=== PATIENT | female | born 1995 | race African-American/Black ===

== ENCOUNTER 2017-03-25 14:35 | Emergency (ER) | payer OTHER ==
[2017-03-25 14:49] VITALS: BP 149/72; PULSE 89; TEMP 98.2; BMI 29.2
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
[2017-03-25] MEDS ORDERED: KETOROLAC TROMETHAMINE 60 MG/2 ML VIAL IM ONE (16:08)
[2017-03-25] MEDS ORDERED: KETOROLAC TROMETHAMINE 60 MG/2 ML VIAL ONE (16:13)
== END 2017-03-25 17:23 | disposition home or self-care (01) ==
LOC: JERFT 14:35
PROC: 3E0233Z Introduction of Anti-inflammatory into Muscle, Percutaneous Approach (ICD-10-PCS; principal; 2017-03-25)
DX: M62.81 Muscle weakness (generalized) (principal); J45.909 Unspecified asthma, uncomplicated; F41.9 Anxiety disorder, unspecified; F32.9 Major depressive disorder, single episode, unspecified; V47.5XXA Car driver injured in collision with fixed or stationary object in traffic accident, initial encounter; Y93.89 Activity, other specified; Y92.415 Exit ramp or entrance ramp of street or highway as the place of occurrence of the external cause
CPT/HCPCS: 72050-TC; 84703; 99281-25

== ENCOUNTER 2017-08-17 03:48 | Emergency (ER) | payer OTHER ==
[2017-08-17] MEDS ORDERED: SODIUM CHLORIDE 1,000 ML IV STA ×2 (04:07→06:33)
[2017-08-17 04:10] VITALS: BMI 34.0
[2017-08-17] MEDS ORDERED: ONDANSETRON 4 MG/2 ML VIAL IVPUSH ONE (04:15)
--- NOTE | 2017-08-17 04:17 | PDOC ---
History of Present Illness - General Chief Complaint: Nausea/Vomiting Stated Complaint: FLU 19 WEEKS Time Seen by Provider: 08/17/17 04:00 History Source: Patient - History of Present Illness Initial Comments: 08/17/17 06:00 21-year-old female 19 weeks 2 para 1 complaining of throat pain , body aches, subjective fevers, nausea vomiting. Denies abdominal pain, vaginal bleeding, vaginal discharge. Patient was seen at [facility] ER and was diagnosed with the flu. Reports taking Tylenol at 10 PM. Past History - Past Medical History Allergies/Adverse Reactions: Allergies Allergy/AdvReac Type Severity Reaction Status Date / Time doxycycline Allergy Severe Hives Verified 08/17/17 04:04 sulfamethoxazole Allergy Severe Hives Verified 08/17/17 04:04 [From Bactrim] trimethoprim [From Bactrim] Allergy Severe Hives Verified 08/17/17 04:04 Home Medications: Ambulatory Orders Cyclobenzaprine HCl [Flexeril 10 mg] 10 mg PO BID PRN #20 tablet MDD 2 03/25/17 Naproxen [Naprosyn -] 500 mg PO BID #14 tablet 03/25/17 Ondansetron HCl [Zofran] 4 mg PO TID PRN #12 tablet 08/17/17 Asthma: Yes Psychiatric Problems: Yes (ANXIETY/DEPRESSION) - Immunization History Immunization Up to Date: Yes - Suicide/Smoking/Psychosocial Hx Smoking History: Current every day smoker Number of Cigarettes Smoked Daily: 3 Hx Alcohol Use: No Drug/Substance Use Hx: No Substance Use Type: None Review of Systems - Review of Systems Able to Perform ROS?: Yes Is the patient limited Swedish proficient: No Constitutional: Yes: Fever (subjective). No: Symptoms Reported, See HPI, Chills , Diaphoresis, Loss of Appetite, Malaise, Night Sweats, Weakness, Weight Stable , Unintentional Wgt. Loss, Unexplained wgt Loss, Other HEENTM: Yes: Throat Pain. No: Symptoms Reported, See HPI, Eye Pain, Blurred Vision, Tearing, Recent change in vision, Double Vision, Cataracts, Ear Pain, Ocular Prothesis, Ear Discharge, Nose Pain, Nose Congestion, Tinnitus, Nose Bleeding, Hearing Loss, Throat Swelling, Mouth Pain, Dental Problems, Difficulty Swallowing, Mouth Swelling, Other ABD/GI: Yes: Nausea, Vomiting. No: Symptoms Reported, See HPI, Abdominal Distended, Abd. Pain w/ defecation, Blood Streaked Bowels, Constipated, Diarrhea , Difficulty Swallowing, Poor Appetite, Poor Fluid Intake, Rectal Bleeding, Indigestion, Abdominal cramping, Tarry Stools, Other : No: Symptoms Reported, See HPI, Burning, Dysuria, Discharge, Frequency, Flank Pain, Hematuria, Incontinence, Pain, Urgency, Testicular Mass, Testicular Swelling, Lesions, Testicular Pain, Other *Physical Exam - Vital Signs 08/17/17 06:06 Vital Signs Temperature 98.8 F 08/17/17 04:05 Pulse Rate 110 H 08/17/17 04:05 Respiratory Rate 20 08/17/17 04:05 Blood Pressure 107/60 08/17/17 04:05 O2 Sat by Pulse Oximetry (%) 97 08/17/17 04:05 - Physical Exam General Appearance: Yes: Appropriately Dressed Respiratory/Chest: positive: Lungs Clear, Normal Breath Sounds Gastrointestinal/Abdominal: positive: Normal Bowel Sounds, Soft. negative: Tender Musculoskeletal: positive: Normal Inspection Integumentary: positive: Normal Color, Dry, Warm Neurologic: positive: Fully Oriented, Alert, Normal Mood/Affect ED Treatment Course - LABORATORY CBC & Chemistry Diagram: 08/17/17 05:00 08/17/17 05:00 Progress Note - Progress Note Progress Note: A: flu like symptoms; dehydration Vomiting P: IVF ZOfran Medical Decision Making - Medical Decision Making 08/17/17 06:34 Patient reports feeling better. tolerating PO. HR 102- 103. UA pending. 08/17/17 07:00 Patient signed out to Luciana SIMS. pending reevaluation and UA *DC/Admit/Observation/Transfer Diagnosis at time of Disposition: Vomiting affecting , Flu-like symptoms - Discharge Dispostion Disposition: HOME Condition at time of disposition: Improved - Prescriptions Prescriptions: Ondansetron HCl [Zofran] 4 mg PO TID PRN #12 tablet PRN Reason: Nausea And/Or Vomiting - Referrals - Patient Instructions Printed Discharge Instructions: DI for Vomiting -- Adult Additional Instructions: drink plenty of fluids. follow up with your doctor as soon as possible. gargle with warm salty water. take tylenol for discomfort and fever - Post Discharge Activity Forms/Work/School Notes: Back to Work, Parent(s) Back to Work Note
[2017-08-17] MEDS ORDERED: ONDANSETRON 4 MG/2 ML VIAL ONE (05:03)
[2017-08-17 05:06] LABS: BASO % 0.4 % (0-2.0); EOS % 0.1 % (0-4.5); HEMATOCRIT 32.2 % (32.4-45.2); HEMOGLOBIN 11.1 GM/dL (10.7-15.3); LYMPH % 6.8 % (8-40); MCH 27.3 pg (25.7-33.7); MCHC 34.5 g/dl (32.0-36.0); MEAN CELL VOLUME 79.2 fl (80-96); MEAN PLT VOLUME 8.1 fl (7.5-11.1); MONO % 6.9 % (3.8-10.2); NEUT % 85.8 % (42.8-82.8); PLATELET COUNT 278 K/MM3 (134-434); RBC 4.06 M/mm3 (3.60-5.2); RDW 13.9 % (11.6-15.6); WHITE BLOOD COUNT 10.6 K/mm3 (4.0-10.0)
[2017-08-17 05:32] LABS: ALBUMIN 2.9 g/dl (3.4-5.0); ANION GAP 12 (8-16); BILIRUBIN,TOTAL 0.3 mg/dL (0.2-1.0); BLOOD UREA NITROGEN 5 mg/dL (7-18); CALCIUM 8.4 mg/dL (8.5-10.1); CHLORIDE 104 mmol/L (98-107); CO2 21 mmol/L (21-32); CREATININE 0.4 mg/dL (0.55-1.02); GLUCOSE,RANDOM 94 mg/dL (74-106); POTASSIUM 3.7 mmol/L (3.5-5.1); SGOT/AST 18 U/L (15-37); SGPT/ALT 19 U/L (12-78); SODIUM 137 mmol/L (136-145); TOT PROT 6.6 g/dl (6.4-8.2)
[2017-08-17 05:33] LABS: ALK PHOS 70 U/L (45-117)
[2017-08-17] MEDS ORDERED: ACETAMINOPHEN 325 MG TABLET (FP) PO ONE (05:58)
[2017-08-17] MEDS ORDERED: ACETAMINOPHEN 325 MG TABLET (FP) ONE (06:09)
[2017-08-17 07:05] LABS: URINE APPEARANCE CLEAR; URINE BILIRUBIN NEGATIVE (NEGATIVE); URINE BLOOD NEGATIVE (NEGATIVE); URINE COLOR YELLOW; URINE GLUCOSE (UA) NEGATIVE (NEGATIVE); URINE KETONE 1+ (NEGATIVE); URINE LEUK ESTERASE NEGATIVE (NEGATIVE); URINE NITRITE NEGATIVE (NEGATIVE); URINE PROTEIN NEGATIVE (NEGATIVE); URINE UROBILINOGEN NEGATIVE mg/dL (0.2-1.0)
[2017-08-17 07:24] VITALS: BP 109/55; PULSE 92; TEMP 98.1
--- NOTE | 2017-08-17 07:47 | PDOC ---
*Physical Exam - Vital Signs Last Vital Signs Temp Pulse Resp BP Pulse Ox 98.1 F 92 H 17 109/55 97 08/17/17 07:22 08/17/17 07:22 08/17/17 07:22 08/17/17 07:22 08/17/17 07:22 ED Treatment Course - LABORATORY CBC & Chemistry Diagram: 08/17/17 05:00 08/17/17 05:00 - ADDITIONAL ORDERS Additional order review: Laboratory Results 08/17/17 08/17/17 06:21 05:00 Sodium 137 Potassium 3.7 Chloride 104 Carbon Dioxide 21 Anion Gap 12 BUN 5 L Creatinine 0.4 L Creat Clearance w eGFR > 60 Random Glucose 94 Calcium 8.4 L Total Bilirubin 0.3 AST 18 ALT 19 Alkaline Phosphatase 70 Total Protein 6.6 Albumin 2.9 L Urine Color Yellow Urine Appearance Clear Urine pH 5.0 Ur Specific [place] 1.017 Urine Protein Negative Urine Glucose (UA) Negative Urine Ketones 1+ H Urine Blood Negative Urine Nitrite Negative Urine Bilirubin Negative Urine Urobilinogen Negative Ur Leukocyte Esterase Negative 08/17/17 04:11 Group A Strep Rapid Antigen - Final Throat 08/17/17 05:00 RBC 4.06 MCV 79.2 L MCHC 34.5 RDW 13.9 MPV 8.1 Neutrophils % 85.8 H Lymphocytes % 6.8 L Monocytes % 6.9 Eosinophils % 0.1 Basophils % 0.4 - Medications Given in the ED: ED Medications Discontinued Medications Generic Name Dose Route Start Last Admin Trade Name Freq PRN Reason Stop Dose Admin Acetaminophen 650 mg 08/17/17 05:58 08/17/17 06:22 Tylenol - PO 08/17/17 05:59 650 mg ONCE ONE Administration Sodium Chloride 1,000 mls @ 1,000 mls/hr 08/17/17 04:07 08/17/17 05:06 Normal Saline - IV 08/17/17 05:06 1,000 mls/hr ASDIR STA Administration Sodium Chloride 1,000 mls @ 1,000 mls/hr 08/17/17 06:33 08/17/17 06:35 Normal Saline - IV 08/17/17 07:32 1,000 mls/hr ASDIR STA Administration Ondansetron HCl 4 mg 08/17/17 04:15 08/17/17 05:06 Zofran Injection IVPUSH 08/17/17 04:16 4 mg ONCE ONE Administration Medical Decision Making - Medical Decision Making 08/17/17 07:43 Pt received in sign out from LEVI Gutiérrez. Pt with uri s/s. recent dx of influenza on taniflu. Pt currently 19 weeks and had mild nausea with but has been exacerbated since getting the Flu. Pt receiving 2nd bag of IVF, tolerating ice chips, stating she feels much better. Will discharge home with hood with recommendations to take tylenol for discomfort and fever *DC/Admit/Observation/Transfer Diagnosis at time of Disposition: Vomiting affecting , Flu-like symptoms - Discharge Dispostion Disposition: HOME Condition at time of disposition: Improved - Referrals - Patient Instructions Printed Discharge Instructions: DI for Vomiting -- Adult Additional Instructions: drink plenty of fluids. follow up with your doctor as soon as possible. gargle with warm salty water. take tylenol for discomfort and fever - Post Discharge Activity
--- NOTE | 2017-08-17 14:15 | EKG ---
Test Reason : Blood Pressure : / mmHG Vent. Rate : 105 BPM Atrial Rate : 105 BPM P-R Int : 140 ms QRS Dur : 080 ms QT Int : 334 ms P-R-T Axes : 053 060 003 degrees QTc Int : 441 ms SINUS TACHYCARDIA OTHERWISE NORMAL ECG NO PREVIOUS ECGS AVAILABLE Confirmed by MD Charlotte, Deep ([id number]) on 08/17/2017 2:15:20 PM Referred By: Confirmed By:Deep Porter MD
== END 2017-08-17 08:14 | disposition home or self-care (01) ==
LOC: JER 03:48
PROC: 3E033GC Introduction of Other Therapeutic Substance into Peripheral Vein, Percutaneous Approach (ICD-10-PCS; principal; 2017-08-17)
PROC: 3E0337Z Introduction of Electrolytic and Water Balance Substance into Peripheral Vein, Percutaneous Approach (ICD-10-PCS; 2017-08-17)
DX: O26.892 Other specified pregnancy related conditions, second trimester (principal); Z3A.19 19 weeks gestation of pregnancy; R11.10 Vomiting, unspecified; J11.1 Influenza due to unidentified influenza virus with other respiratory manifestations
CPT/HCPCS: 36415; 80053; 81003; 85025; 87070; 87430; 93005; 93010; 99284-25

== ENCOUNTER 2017-09-15 08:18 | Emergency (ER) | payer OTHER ==
[2017-09-15 08:29] VITALS: BMI 33.5
[2017-09-15] MEDS ORDERED: ACETAMINOPHEN 325 MG TABLET (FP) ONE (09:00)
[2017-09-15] MEDS ORDERED: DEXTROSE 5%-LACTATED RINGERS 500 ML IV ONE (09:00)
[2017-09-15] MEDS ORDERED: DEXTROSE 5%-LACTATED RINGERS 1,000 ML IV SCH (10:00)
[2017-09-15 10:05] VITALS: BP 125/50; PULSE 90; TEMP 98.6
[2017-09-15] MEDS ORDERED: ACETAMINOPHEN 325 MG TABLET (FP) PO ONE (11:15)
== END 2017-09-15 12:04 | disposition home or self-care (01) ==
LOC: JER 08:18
PROC: 3E0337Z Introduction of Electrolytic and Water Balance Substance into Peripheral Vein, Percutaneous Approach (ICD-10-PCS; principal; 2017-09-15)
DX: O26.892 Other specified pregnancy related conditions, second trimester (principal); Z3A.23 23 weeks gestation of pregnancy; V43.92XA Unspecified car occupant injured in collision with other type car in traffic accident, initial encounter; Y93.89 Activity, other specified; Y92.410 Unspecified street and highway as the place of occurrence of the external cause
CPT/HCPCS: 99282-25

== ENCOUNTER 2018-01-30 18:16 | Emergency (ER) | payer OTHER ==
--- NOTE | 2018-01-30 18:50 | PDOC ---
History of Present Illness - General Chief Complaint: Urinary Problem Stated Complaint: KIDNEY INFECTION History Source: Patient Exam Limitations: No Limitations - History of Present Illness Travel History: No Initial Comments: 01/30/18 18:56 Patient came for evaluation of pain, cramping, suprapubic and right flank pain with chills and fever since yesterday. States is one month and has been extra tired but noted a worsening of her fatigue yesterday with chills. Also has had dysuria including frequency, voiding small amounts, and burning with voiding. Had a urinary tract infection at 7 months and is uncertain as to what medication she was treated with. Denies vaginal drainage and states postpartal bleeding has stopped. Bowels are working within normal limits although mildly constipated. Timing/Duration: reports: getting worse Quality: reports: moderate, severe, aching, cramping, sharpness Abdominal Pain Onset Location: reports: suprapubic, flank (right) Activities at Onset: reports: none Past History - Travel Traveled outside of the country in the last 30 days: No Close contact w/someone who was outside of country & ill: No - Past Medical History Allergies/Adverse Reactions: Allergies Allergy/AdvReac Type Severity Reaction Status Date / Time doxycycline Allergy Severe Hives Verified 09/15/17 08:29 sulfamethoxazole Allergy Severe Hives Verified 09/15/17 08:29 [From Bactrim] trimethoprim [From Bactrim] Allergy Severe Hives Verified 09/15/17 08:29 Home Medications: Ambulatory Orders Aspirin [ASA -] 81 mg PO DAILY 09/15/17 Ipratropium/Albuterol Sulfate [Combivent Respimat Inhal [place]] 4 gm IH PRN PRN 09/15/17 Vitamins (Sjr) - 1 tab PO DAILY 09/15/17 Phenazopyridine HCl [Pyridium -] 200 mg PO PC #12 tablet 01/30/18 levoFLOXacin [Levaquin -] 500 mg PO DAILY #10 tablet 01/30/18 Asthma: Yes COPD: No Psychiatric Problems: Yes (ANXIETY/DEPRESSION) - Reproductive History (#): 3 Para: 1 Therapeutic (s) & number: Yes - Immunization History Immunization Up to Date: Yes - Suicide/Smoking/Psychosocial Hx Smoking History: Never smoked Have you smoked in the past 12 months: No Number of Cigarettes Smoked Daily: 3 If you are a former smoker, when did you quit?: unk Hx Alcohol Use: No Drug/Substance Use Hx: No Substance Use Type: None Review of Systems - Review of Systems Able to Perform ROS?: Yes Is the patient limited Divehi proficient: Yes Constitutional: Yes: Symptoms Reported, See HPI, Chills, Fever, Loss of Appetite , Malaise HEENTM: Yes: See HPI. No: Symptoms Reported Respiratory: Yes: See HPI. No: Symptoms reported, Cough ABD/GI: Yes: Symptoms Reported, See HPI, Constipated, Nausea, Poor Appetite. No : Vomiting : Yes: Symptoms Reported, See HPI, Burning, Dysuria, Frequency, Flank Pain, Urgency. No: Discharge Musculoskeletal: Yes: See HPI. No: Symptoms Reported Integumentary: Yes: See HPI. 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 Also given Pyridium 200 mg for anesthetic . *DC/Admit/Observation/Transfer Diagnosis at time of Disposition: UTI (urinary tract infection) Qualifiers: Urinary tract infection type: acute cystitis Hematuria presence: without hematuria Qualified Code(s): N30.00 - Acute cystitis without hematuria - Discharge Dispostion Disposition: HOME Condition at time of disposition: Stable Decision to Admit order: No - Prescriptions Prescriptions: levoFLOXacin [Levaquin -] 500 mg PO DAILY #10 tablet Phenazopyridine HCl [Pyridium -] 200 mg PO PC #12 tablet - Referrals Referrals: Jenaro Cortes MD [Staff Physician] - - Patient Instructions Printed Discharge Instructions: DI for Urinary Tract Infection (UTI) Additional Instructions: Rest, drink lots of fluids: Teas, water, soups Avoid contact with others until fevers and symptoms resolved Lots of handwashing and good hygiene Continue [id number] medications for symptomatic relief Tylenol or Motrin for fever and pain Continue all of antibiotics until completed Followup with private physician in one week for repeat urinalysis/reevaluation Return to emergency department for worsened symptoms, fevers, dehydration - Post Discharge Activity Forms/Work/School Notes: Back to Work
[2018-01-30] MEDS ORDERED: PHENAZOPYRIDINE HCL 100 MG TABLET (FP) PO ONE (18:54)
[2018-01-30] MEDS ORDERED: levoFLOXacin 750 MG TABLET PO SCH (19:00)
[2018-01-30 19:38] VITALS: BP 121/98; PULSE 123; TEMP 100.9; BMI 32.8
== END 2018-01-30 20:06 | disposition home or self-care (01) ==
LOC: JERFT 18:16
DX: O86.22 Infection of bladder following delivery (principal)
CPT/HCPCS: 81003; 81015; 84703; 87086; 99281-25

== ENCOUNTER 2018-07-03 08:14 | Emergency (ER) | payer OTHER ==
[2018-07-03 08:24] VITALS: BP 139/90; PULSE 91; TEMP 97; BMI 33.0
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
[2018-07-03] MEDS ORDERED: IBUPROFEN 400 MG TABLET (FP) PO ONE ×2 (09:16→09:32)
== END 2018-07-03 09:36 | disposition home or self-care (01) ==
LOC: JERFT 08:14
DX: S00.83XA Contusion of other part of head, initial encounter (principal); S00.511A Abrasion of lip, initial encounter; Y04.2XXA Assault by strike against or bumped into by another person, initial encounter; Y93.89 Activity, other specified; Y92.038 Other place in apartment as the place of occurrence of the external cause; Y99.8 Other external cause status; Y07.02 Wife, perpetrator of maltreatment and neglect
CPT/HCPCS: 99281-25

== ENCOUNTER 2018-08-03 22:30 | Emergency (ER) | payer OTHER ==
[2018-08-03 22:48] VITALS: BP 121/70; PULSE 97; TEMP 98.2; BMI 32.1
[2018-08-03] MEDS ORDERED: KETOROLAC TROMETHAMINE 60 MG/2 ML VIAL IM ONE (23:09)
[2018-08-03] MEDS ORDERED: KETOROLAC TROMETHAMINE 60 MG/2 ML VIAL ONE (23:16)
--- NOTE | 2018-08-03 23:19 | PDOC ---
*Physical Exam - Vital Signs Last Vital Signs Temp Pulse Resp BP Pulse Ox 98.2 F 97 H 20 121/70 98 08/03/18 22:45 08/03/18 22:45 08/03/18 22:45 08/03/18 22:45 08/03/18 22:45 Medical Decision Making - Medical Decision Making 08/03/18 23:19 Patient seen by the advanced practice provider under my direct supervision. Ancillary testing reviewed as necessary. I agree with plan as outlined by the advanced practice provider.
--- NOTE | 2018-08-03 23:26 | PDOC ---
History of Present Illness - General Chief Complaint: Injury Stated Complaint: FALL Time Seen by Provider: 08/03/18 22:55 History Source: Patient Exam Limitations: Clinical Condition - History of Present Illness Initial Comments: 08/03/18 23:23 Patient with no significant past medical history present with complaint of mid back and lower back pain status post slip and fall on the icy staircase this evening. Patient denies loss of consciousness or hit in head. Patient reported increased pain to back with complaint radiating up to her upper back. Patient denies any other symptoms Timing/Duration: 1-3 hours Past History - Past Medical History Allergies/Adverse Reactions: Allergies Allergy/AdvReac Type Severity Reaction Status Date / Time doxycycline Allergy Severe Hives Verified 08/03/18 22:55 sulfamethoxazole Allergy Severe Hives Verified 08/03/18 22:55 [From Bactrim] Home Medications: Ambulatory Orders Aspirin [ASA -] 81 mg PO DAILY 09/15/17 Ipratropium/Albuterol Sulfate [Combivent Respimat Inhal [place]erton] 4 gm IH PRN PRN 09/15/17 Vitamins (Sjr) - 1 tab PO DAILY 09/15/17 Methocarbamol [Robaxin -] 500 mg PO BID PRN #14 tablet 08/04/18 Naproxen 500 mg PO BID PRN #20 tablet 08/04/18 Oxycodone HCl/Acetaminophen [Percocet 5-325 mg Tablet] 1 tab PO Q6H PRN #5 tablet MDD 3 08/04/18 Asthma: Yes COPD: No DVT: No Psychiatric Problems: Yes (ANXIETY/DEPRESSION) - Reproductive History (#): 3 Para: 1 Therapeutic (s) & number: Yes - Immunization History Immunization Up to Date: Yes - Suicide/Smoking/Psychosocial Hx Smoking History: Never smoked Have you smoked in the past 12 months: No Number of Cigarettes Smoked Daily: 3 If you are a former smoker, when did you quit?: unk Information on smoking cessation initiated: No Hx Alcohol Use: No Drug/Substance Use Hx: No Substance Use Type: None Review of Systems - Review of Systems Able to Perform ROS?: Yes Is the patient limited [place] proficient: No Constitutional: No: Weakness HEENTM: No: Eye Pain, Blurred Vision, Recent change in vision, Double Vision Respiratory: No: Symptoms reported Cardiac (ROS): No: Symptoms Reported ABD/GI: No: Nausea, Vomiting Musculoskeletal: Yes: See HPI, Back Pain (lower and mid back on left side), Muscle Pain (lower back). No: Joint Stiffness Neurological: No: Headache, Numbness, Paresthesia, Tingling, Weakness, Dizziness All Other Systems: Reviewed and Negative *Physical Exam - Vital Signs Last Vital Signs Temp Pulse Resp BP Pulse Ox 98.2 F 97 H 20 121/70 98 08/03/18 22:45 08/03/18 22:45 08/03/18 22:45 08/03/18 22:45 08/03/18 22:45 - Physical Exam Comments: 08/03/18 23:25 GENERAL: Well developed, well nourished. Awake and alert. mild acute distress. CARDIOVASCULAR: Regular rate and rhythm. No murmurs, rubs, or gallops. PULMONARY: No evidence of respiratory distress. Lungs clear to auscultation bilaterally. No wheezing, rales or rhonchi. ABDOMINAL: Soft. Non-tender. Non-distended. No rebound or guarding. No organomegaly. Normoactive bowel sounds MUSCULOSKELETAL : mild tenderness over posterior paravertebral muscle of thoracic and lumbar spine of T10-L5 on the left sides. No bony deformities SKIN: Warm and dry. Normal capillary refill. No rashes. No jaundice. NEUROLOGICAL: Alert, awake, appropriate. No motor deficits in the lower extremities. Gait is normal without ataxia. PSYCHIATRIC: Cooperative. Good eye contact. Appropriate mood and affect. General Appearance: Yes: Nourished, Appropriately Dressed, Mild Distress Moderate Sedation - Procedure Monitoring Vital Signs: Procedure Monitoring Vital Signs Temperature 98.2 F 08/03/18 22:45 Pulse Rate 97 H 08/03/18 22:45 Respiratory Rate 20 08/03/18 22:45 Blood Pressure 121/70 08/03/18 22:45 O2 Sat by Pulse Oximetry (%) 98 08/03/18 22:45 ED Treatment Course - RADIOLOGY Radiology Studies Ordered: Category Date Time Status SPINE-LUMBAR SACRAL [RAD] Stat Radiology 08/03/18 23:12 Ordered - Medications Given in the ED: ED Medications Discontinued Medications Generic Name Dose Route Start Last Admin Trade Name Freq PRN Reason Stop Dose Admin Ketorolac Tromethamine 60 mg 08/03/18 23:09 08/03/18 23:20 Toradol Injection - IM 08/03/18 23:10 60 mg ONCE ONE Administration Medical Decision Making - Medical Decision Making 08/04/18 00:22 Patient with no significant past medical history present with complaint of mid back and lower back pain status post slip and fall on the icy staircase this evening. Patient denies loss of consciousness or hit in head. Patient reported increased pain to back with complaint radiating up to her upper back. Toradol 60mg IM for pain. UA labs ordered to evaluate for hematuria. x-ray of lumbosacral ordered to r/o spine pathology 08/04/18 01:09 UA shows no hematuria. X-ray of lumbosacral shows no acute pathology. Patient is stable for discharge on NSAIDs and muscle relaxer with orthopedics follow-up as needed *DC/Admit/Observation/Transfer Diagnosis at time of Disposition: Lumbago without sciatica Qualifiers: Chronicity: acute Back pain laterality: left Qualified Code(s): M54.5 - Low back pain Fall Qualifiers: Encounter type: initial encounter Qualified Code(s): W19.XXXA - Unspecified fall, initial encounter - Discharge Dispostion Disposition: HOME Condition at time of disposition: Stable Decision to Admit order: No - Prescriptions Prescriptions: Methocarbamol [Robaxin -] 500 mg PO BID PRN #14 tablet PRN Reason: Back Pain Naproxen 500 mg PO BID PRN #20 tablet PRN Reason: Back Pain Oxycodone HCl/Acetaminophen [Percocet 5-325 mg Tablet] 1 tab PO Q6H PRN #5 tablet MDD 3 PRN Reason: severe pain - Referrals Referrals: Campbell Tee DO [Staff Physician] - - Patient Instructions Printed Discharge Instructions: Low Back Pain, Exercise May Reduce Risk of Low Back Pain Additional Instructions: Take medications as prescribed. Apply heat to lower back to 2-3 times a day for 5-10 minutes as needed for pain. Follow-up referred to orthopedics if symptoms does not improve in 4 days - Post Discharge Activity
[2018-08-04 00:49] LABS: URINE APPEARANCE CLEAR; URINE BILIRUBIN NEGATIVE (<2.0 mg/dL); URINE COLOR LTYELLOW; URINE GLUCOSE (UA) NEGATIVE (NEGATIVE); URINE KETONE NEGATIVE (NEGATIVE); URINE LEUK ESTERASE NEGATIVE (NEGATIVE); URINE NITRITE NEGATIVE (NEGATIVE); URINE PROTEIN NEGATIVE (NEGATIVE); URINE UROBILINOGEN NEGATIVE mg/dL (0.2-1.0)
[2018-08-04] MEDS ORDERED: ACETAMINOPHEN 500 MG TABLET (FP) PO ONE (01:03)
[2018-08-04] MEDS ORDERED: ACETAMINOPHEN 325 MG TABLET (FP) ONE (01:09)
== END 2018-08-04 01:11 | disposition home or self-care (01) ==
LOC: JER 22:30
PROC: 3E0233Z Introduction of Anti-inflammatory into Muscle, Percutaneous Approach (ICD-10-PCS; principal; 2018-08-03)
DX: M54.5 Low back pain (principal); W00.1XXA Fall from stairs and steps due to ice and snow, initial encounter; Y93.89 Activity, other specified; Y92.488 Other paved roadways as the place of occurrence of the external cause; Y99.8 Other external cause status
CPT/HCPCS: 72100-TC-FY; 81003; 87086; 99283-25

== ENCOUNTER 2018-11-28 09:36 | Emergency (ER) | payer OTHER | END 2018-11-28 10:58 | disposition home or self-care (01) | LOC: JERFT 09:36 ==